=== PATIENT | female | born 1960 | race Caucasian/White ===

== ENCOUNTER 2017-01-25 16:41 | Observation (INO) | payer OTHER ==
[~2017-01-25] VITALS: Ht 170.2 cm; Wt 60.2 kg
[2017-01-25 16:47] VITALS: BP 138/91; PULSE 59; RESP 20; O2SAT 99
[2017-01-25 18:51] LABS: APPEARANCE,URINE CLOUDY (CLEAR,HAZY); COLOR,URINE BLOODY (YELLOW); OCCULT BLOOD,URINE LARGE (NEGATIVE); UROBILINOGEN,URINE NORMAL (NORMAL)
--- NOTE | 2017-01-25 19:01 | ED.REPORT ---
HPI-Abd Pain F 40 and Over Date of Service Jan 25, 2017 ED Provider: Leo Das MD History of Present Illness: Patient sent in by GI Dr. Gil from GI Clinic A 57 year old female with a history of allergies presents to the ED with worsening RUQ abdominal pain onset a "couple of months ago." The pain has since become diffuse and is currently rated 6/10, with exacerbation to 10/10 with eating and movement. The patient also reports nausea and recent weight loss ( 15lbs) over the past two months. She denies vomiting, dysuria, hematochezia, diarrhea, or other symptoms. The patient had an abdominal CT and subsequent US over the past three weeks, both indicating an enlarged uterus. She was seen by her GI physician today who noted abdominal guarding and referred her to the ED. The patient has a long family history of gastric cancers. Nursing Notes Stated Complaint: ABDOMINAL PAIN Chief Complaint: Female Abdominal Pain Nursing Notes Reviewed: Yes ([employer], meds not reconciled) Allergies: Coded Allergies: Nelson (Verified Allergy, Severe, Anaphylaxis, 01/25/17) banana (Verified Allergy, Severe, Anaphylaxis, 01/25/17) latex (Verified Allergy, Mild, 01/25/17) Scheduled Beclomethasone Dipropionate (Qvar) 8.7 Gm Aer.w.adap 3 PUFF INHALATION BID 80 MCG INHALER Cetirizine HCl (Zyrtec) 10 Mg Capsule 10 MG PO HS Ferrous Sulfate (Ferrous Sulfate) 325 Mg Tablet 325 MG PO DAILY Montelukast (Montelukast) 10 Mg Tablet 10 MG PO HS [place]-3/Dha/Epa/Fish Oil (Fish Oil 1,000 mg Softgel) 1 Each Capsule 1 EACH PO BID Potassium Gluconate (Potassium Gluconate) 500 Mg Tablet 500 MG PO DAILY Scheduled PRN Albuterol HFA (Proair HFA) 8.5 Gm Hfa.aer.ad 2 PUFFS INHALATION Q4H PRN PRN For Shortness of Breath Epinephrine (Epipen 2-Delbert) 0.3 Mg/0.3 Ml Auto.injct 0.3 MG IJ DAILY PRN PRN For Anaphyllaxis diphenhydrAMINE HCl (Benadryl) 25 Mg Capsule 25-50 MG PO Q4H PRN PRN ALLERGIC REACTION General Time Seen by MD: 18:55 Chief Complaint Abdominal pain Hx Obtained From: Patient Arrived By: Walk-in Sudden in Onset?: No Onset Occurred: More than a week ago... ("a couple of months") Symptom Duration: Since onset Progression since Onset: Gradually worsening Location: : Diffuse: RUQ Quality: Painful Severity: Current: Moderate Severity: Maximum: Moderate Associated with: Reports: Nausea, Denies: Diarrhea, Fever, Vomiting Exacerbated by: Eating, Movement Pertinent Negative: Relieved by nothing Recent Healthcare: Recent doctor visit Past Medical History Past Medical History None reported Past Surgical History Allergies Family History "Stomach cancer" Smoking History Never Smoker Social History Other Social History: Good social support Ambulatory Status Independent Review of Systems Constitutional: Reports: Recent wt loss (15lbs over two months), Denies: Fever Respiratory: Denies: Non-productive cough, Shortness of breath GI: Reports: Abdominal pain (RUQ to diffuse), Nausea, Denies: Diarrhea, Hematochezia, Vomiting Female: Denies: Dysuria Complete sys rev & neg: except as marked. Physical Exam Vital Signs Vital Signs (First) Date Time Temp Pulse Resp B/P Pulse Ox O2 Delivery O2 Flow Rate FiO2 01/25/17 16:47 36.3 59 20 138/91 99 Room Air Initial VS: Reviewed, Vital signs normal Head / Eyes: Atraumatic, Normocephalic ENT: Conjunctiva normal, No scleral icterus Skin: Warm, Dry, No cyanosis Neurologic: Alert, Oriented, Nonfocal Psychiatric: Mood/affect normal, Behavior normal, Normal thought content General/Constitutional: Awake, Alert Thin Respiratory / Chest: Breath sounds NL, Breath sounds = bilat, No respiratory distress Cardiovascular: Heart rate NL, Regular rhythm, Heart sounds NL Abdomen: Soft, Non-tender, No guarding, No rebound No peritonitis Interpretation & Diagnostics CT ABDOMEN/PELVIS W/ CONTRAST from [facility] on 01/06/17: IMPRESSION: Overall, no acute abnormality. Mild hepatic steatosis. Normal appearance of gallbladder. Simple left renal cyst. Appendix not definitely seen however probably normal in the right lower quadrant. Please correlate clinically and with laboratory data to exclude occult appendicitis. Diffuse heterogeneous and enlarged uterus, although clinical significance is unknown. Recommend clinical correlation and if needed pelvic ultrasound could be performed for further assessment. Dictated by: Dean Shepherd M.D. on 01/06/17 at 11:52 AM US PELVIS W/ TRANSVAGINAL from [facility] on 01/18/17: IMPRESSION: Diffusely enlarged uterus, although no focal lesion identified. Recommend clinical correlation. Nonspecific left ovarian cyst. At clinical discretion, follow-up with ultrasound of 6-12 weeks could be performed to document resolution. Dictated by: Dean Meyers M.D. on 01/18/17 at 10:18 AM Lab Results Interpretation Result Diagram: 01/25/17 19301/25/17 193 Test 01/25/17 18:21 01/25/17 19:35 Urine Color Bloody (YELLOW) Urine Appearance Cloudy (CLEAR,HAZY) Urine pH 7.0 (5.0-8.0) Urine Specific [place] 1.015 (1.003-1.035) Urine Protein 30mg/dL (NEG,TRACE) Urine Glucose (UA) Negativemg/dL (NEGATIVE) Urine Ketones Negativemg/dL (NEGATIVE) Urine Occult Blood Large (NEGATIVE) Urine Nitrite Negative (NEGATIVE) Urine Bilirubin Negative (NEGATIVE) Urine Urobilinogen Normalmg/dL (NORMAL) Urine Leukocyte Esterase Trace (NEGATIVE) Urine RBC Packed/hpf (0-2) Urine WBC 0-5/hpf (0-5) Urine Epithelial Cells Few/hpf (NONE-MOD) Urine Crystals None seen (NONE SEEN) Urine Bacteria Few/hpf (NONE-FEW) Urine Hyaline Casts None/lpf (NONE) Urine Granular Casts None seen (NONE SEEN) Urine Waxy Casts None seen (NONE SEEN) Urine Red Blood Cell Casts None seen (NONE SEEN) Urine White Blood Cell Casts None seen (NONE SEEN) Urine Mucus None seen (None Seen) Urine Trichomonas None seen (NONE SEEN) Urine Yeast None (NONE SEEN) Urinalysis Comment None Urine Culture Reflexed Indicated White Blood Count 5.7th/mm3 (3.8-10.1) Red Blood Count 4.41mil/mm3 (3.90-5.20) Hemoglobin 13.9g/dL (12.0-15.6) Hematocrit 41.7% (35.0-46.0) Mean Corpuscular Volume 94.6fL (81-100) Mean Corpuscular Hemoglobin 31.5pg (27.0-35.0) Mean Corpuscular Hemoglobin Concent 33.3% (32.0-37.0) Red Cell Distribution Width 13.4% (12.3-15.4) Platelet Count 207bil/L (150-400) Neutrophils (%) (Auto) 76.1% (40-74) Lymphocytes (%) (Auto) 17.5% (14-46) Monocytes (%) (Auto) 5.6% (4-12) Eosinophils (%) (Auto) 0.3% (0-5) Basophils (%) (Auto) 0.3% (0-3) Sodium Level 138mEq/L (134-144) Potassium Level 3.8mEq/L (3.5-5.2) Chloride Level 103mEq/L (97-108) Carbon Dioxide Level 22mmol/L (18-29) Blood Urea Nitrogen 14mg/dL (6-24) Creatinine 0.58mg/dL (0.57-1.00) Estimat Glomerular Filtration Rate 154mL/min (>59) Glucose Level 100mg/dL (60-99) Calcium Level 8.7mg/dL (8.5-10.1) Magnesium Level 2.1mg/dL (1.6-2.6) Total Bilirubin 0.6mg/dL (0.0-1.2) Aspartate Amino Transf (AST/SGOT) 12U/L (0-50) Alanine Aminotransferase (ALT/SGPT) 12U/L (0-32) Alkaline Phosphatase 59U/L (25-150) Total Protein 6.5g/dL (6.4-8.4) Albumin 4.1g/dL (3.4-5.0) Lipase 47U/L (13-60) Hold Anaya Top Tube Received (Received) Lab Results Interpretation: CBC normal CMP normal Lipase normal UA positive hematuria CT Abd / Pelvis Interpretation CONCLUSION: 2.5cm cyst in the left ovary. Nonemergent ultrasound is recommended. Uterus is mildly enlarged. This could also be further evaluated with ultrasound. Transmitted to ED by Terry Castillo M.D. at 01/25/2017 - 10:15:11 PM PST Study type: Abdominal CT IV contrast Interpretation / Wet Read by: Interpret - Radiologist Re-Eval/Medical Decision Med Decision/Clinical Course This is a 57-year-old female sent in by the GI clinic for abdominal pain with concern for guarding on initial exam and the GI office. This patient's been developing symptoms that have persistent discomfort over a number of weeks, has had an outpatient CT scan, an ultrasound. The patient reports that the ultrasound suggested her uterus was extremely enlarged, although the formal report is reviewed and obtained from [employer] does not describe this. The patient has had a 15 pound weight loss, has an extensive family history of gastric cancer, and reports that she has pain in her symptoms are worsened with eating-so she has really not been eating, symptoms and continue to get worse. The location is mainly in the epigastric periumbilical region, although occasionally down to the lower abdomen and she reports intermittent malaise " all over" is been no fever, no vomiting, no GI blood loss, no dysuria and no additional complaint. On my exam she was then responded she appears fatigued, cachectic, in thin-but she does not have localized tenderness or guarding at time of my exam. Work was obtained and was normal. Discussed the case with GI and indicated the concern was this guarding-so I CT scan with IV and oral contrast was obtained-those negative except for an incidental ovarian cyst with outpatient ultrasound for that recommended in follow-up. UA noted some mild hematuria as well, significance uncertain. However neither an ovarian cyst, nor hematuria explain the weight loss, the inability to eat or drink or provoke symptoms-and again the patient's highly concerned with her extensive family history of some sort of gastric or intestinal cancer. So the plan at this point is admission to the hospital, GI consultation and the case was discussed with both GI and the admitting hospitalist Source of Hx: Old records Re-Evaluation/Progress : Time of Eval: 22:49 )( Re-Eval Abdomen: Soft, Non-tender Re-Evaluation/Progress Note: Patient's pain has worsened. Discussed with patient CT and lab results, diagnosis, and plan for admit. Patient agrees with plan for care and all questions were addressed. Consultation #1: Referral / Consult Name: Linda Plaza MD Call Returned at: 20:30 [employer]: Will see patient (Tomorrow), Agrees with eval, Agrees with plan Consultation #2: Referral / Consult Name: Erika Sun DO Consulted With: Hospitalist Call Returned at: 22:37 [employer]: Agrees with eval, Agrees with plan, Accepts admit Differential Diagnosis: Positive: Acute abdominal pain, Negative: Abdominal aortic aneurysm, Appendicitis, Bladder outlet obstruct, C. diff colitis, Ectopic preg ruptured, Ectopic , Esophageal rupture, Gun shot wound abdomen, Myocardial infarction, Pancreatitis, Peritonitis, Stab wound abdomen Counseled Regarding: Diagnosis, Lab results, Need for admission Discharge & Departure Primary Impression: Abdominal pain Abdominal location: generalized Qualified Code: R10.84 - Generalized abdominal pain Additional Impressions: Recent weight loss Dehydration Hematuria Left ovarian cyst Disposition: ADMITTED TO HOSPITAL Discharge Condition All VS Reviewed: Yes Condition: Improved Referrals: Mukul Mora MD (PCP) Lance Gil PA-C Scribe Attestation Portions of this note were transcribed by Ariadna Bower. I, Dr. Das, personally performed the history, physical exam, and medical decision-making; I reviewed and confirmed the accuracy of the information in the transcribed note. Signed by: Carina Crum, 01/25/2017, 22:55 copies to: Lance Gil PA-C; Mukul Mora MD, Matthew F MD Jan 25, 2017 19:01 ARIADNA BOWER Jan 25, 2017 19:11
[2017-01-25] MEDS ORDERED: 0.9% Sodium Chloride 1,000 ML IV ONE (19:20)
[2017-01-25] MEDS ORDERED: Ondansetron 2 mg/mL 2 mL Inj IVPUSH ONE (19:20)
[2017-01-25 19:45] LABS: BASOPHILS % (AUTO) 0.3 % (0-3); EOSINOPHILS % (AUTO) 0.3 % (0-5); MONOCYTES % (AUTO) 5.6 % (4-12); Mean Corpuscular Hemoglobin 31.5 pg (27.0-35.0); Mean Corpuscular Volume 94.6 fL (81-100); NEUTROPHILS % (AUTO) 76.1 % (40-74); Platelet Count 207 bil/L (150-400)
[2017-01-25] MEDS ORDERED: CETI10CA PO (19:51)
[2017-01-25] MEDS ORDERED: OMEG-38 PO (19:51)
[2017-01-25] MEDS ORDERED: POTA2TAB16 PO (19:51)
[2017-01-25] MEDS ORDERED: DIPH25CA6 PO (19:51)
[2017-01-25] MEDS ORDERED: FERR-83 PO (19:51)
[2017-01-25] MEDS ORDERED: ALBU8.5H2 INHALATION (19:52)
[2017-01-25] MEDS ORDERED: BECL8.7A6 INHALATION (19:52)
[2017-01-25] MEDS ORDERED: MONT10TA23 PO (19:52)
[2017-01-25] MEDS ORDERED: EPIN0.3P2 IJ (19:53)
[2017-01-25] MEDS: HYDROmorphone 0.5 mg/0.5 mL iSecure Syringe IVPUSH PRN ×2 (20:01→23:29)
[2017-01-25 20:05] LABS: Magnesium 2.1 mg/dL (1.6-2.6)
[2017-01-25] MEDS ORDERED: Iohexol 300 mg/mL 30 mL Inj PO ONE (20:30)
[2017-01-25] MEDS ORDERED: Alum-Mag Hydrox-Simeth 30 mL Suspension PO PRN (22:45)
[2017-01-25] MEDS ORDERED: Polyethylene Glycol (PEG) 17 Gm Powder PO PRN (22:45)
[2017-01-25] MEDS ORDERED: HYDROmorphone 0.5 mg/0.5 mL iSecure Syringe IVPUSH ONE (22:50)
[2017-01-25 22:58] VITALS: BP 121/68; PULSE 66; RESP 16; O2SAT 96
[2017-01-25] MEDS ORDERED: HYDROmorphone 1 mg/mL Inj IVPUSH PRN (23:40)
[2017-01-26] VITALS (12 sets, daily range): BP systolic 88–122; BP diastolic 45–70; PULSE 50–67; RESP 14–18; O2SAT 95–98
[2017-01-26] MEDS: Ondansetron 2 mg/mL 2 mL Inj IVPUSH PRN ×5 (01:06→22:54)
[2017-01-26] MEDS: 0.9% Sodium Chloride 1,000 ML IV SCH ×3 (02:43→16:14)
[2017-01-26] MEDS: HYDROmorphone 1 mg/mL Inj IVPUSH PRN ×4 (02:53→19:02)
[2017-01-26] MEDS ORDERED: diphenhydrAMINE 25 mg Capsule PO PRN (05:25)
--- NOTE | 2017-01-26 05:32 | PCM.HPMED ---
Subjective Date of Service Jan 26, 2017 Primary Provider: Admitting Physician: Erika Sun DO Primary Care Physician: Mukul Mora MD Attending Physician: Erika Sun DO Admit Status: From the Emergency Department Chief Complaint: Abdominal pain History of Present Illness: 57 year old female with LMP January 20 and medical history significant only for asthma and allergies presented to [facility] ED with worsening abdominal pain after being encouraged to do so by Lance ALEMAN from GI Clinic. Who took the following history at her clinic visit. This pleasant 57-year-old patient presents complaining of generalized abdominal pain with guarding. She reports that symptoms started 2 months ago and pain has progressively worsened. She describes pain as a constant aching that becomes stabbing after eating meals--she has been avoiding eating to avoid the discomfort, and reports has lost nearly 15 pounds over the past 2 months. Since there is an association with meals, her PCP started omeprazole--she reports has noted no improvement. She reports that her bowel movement frequency has decreased to every other day--she believes this is due to the fact that she is not eating much--denies straining with bowel movements. She also reports dyspepsia and nausea associated with intensified pain episodes-- denies vomiting, melena, hematochezia, diarrhea, rectal pain, fever, chills, or history of PUD. Most recent blood work one month ago was unremarkable. Abdomen /pelvis CT was performed at [facility], on 01/06/2017-- unremarkable, except for enlarged uterus. Nearly 2 weeks later, a transvaginal ultrasound was performed and revealed, "... diffusely enlarged uterus, although no focal lesions identified ...". She states has never undergone colonoscopy. She denies family history of colon cancer, but does report a family history of gastric cancer (her father and aunt) . Additionally, patient reports an acute worsening in the last day and increased pain since her CT with oral contrast. She now describes the pain as "labor-like " and points to her bilateral lower quadrants. She describes her pain level 6/ 10, with exacerbation to 10/10 with eating and movement. She has been having nausea with only one episode of vomiting just prior to my visit with the patient. She denies dysuria, hematochezia, and diarrhea. She does mention that she has a small mouth and narrow esophagus, she chokes easily. She endorses mild dizziness and shortness of breath with pain episodes. She is currently menstruating with light flow. Review of Systems: A comprehensive review of systems was conducted with the patient and found to be negative except as above in the History of Present Illness. Allergies Coded Allergies: Nelson (Verified Allergy, Severe, Anaphylaxis, 01/25/17) banana (Verified Allergy, Severe, Anaphylaxis, 01/25/17) latex (Verified Allergy, Mild, 01/25/17) [facility] 01/25/2017 03:30 PM 11/26 Patient reports no changes 11/13/2015 Benadryl Allergy 25 mg tablet take 1 tablet by oral route as needed for allergy to bananas and cherries 11/13/2015 EpiPen 2-Delbert 0.3 mg/0.3 mL (1:1,000) injection,auto-injector inject 0.3 milliliter by intramuscular route once as needed for anaphylaxis 11/13/2015 Fish Oil 1,000 mg capsule take 2 capsules every day MONTELUKAST SODIUM take 1 tablet by oral route every day in the evening 11/13/2015 Multiple Vitamins tablet take 1 tablet every day 12/28/2016 omeprazole 20 mg capsule,delayed release take 1 capsule by oral route every day Qvar inhale 2 puff by inhalation route 2 times every day 06/02/2016 urea 40 % topical cream apply by topical route 2 times every day to the affected area(s) 09/10/2016 Ventolin HFA 90 mcg/actuation aerosol inhaler inhale 2 puff by inhalation route every 4 - 6 hours as needed 11/18/2015 Zyrtec 10 mg tablet take 1 tablet by oral route every day PMH Asthma Allergies; severe to banana and cherries and latex Surgical History Single wisdom tooth extraction Family History Gastric cancer in father diagnosed at age 62 at age 65. gastric cancer in paternal aunt Gastric cancer in cousin (not the child of aunt with Gastric cancer) Social History Hx Alcohol Use: No Hx Substance Use: No Hx Tobacco Use: No Smoking Status: Never Smoker Living Arrangement: with Family Exam Vital Signs Vital Sign - Last Date Time Temp Pulse Resp B/P Pulse Ox O2 Delivery O2 Flow Rate FiO2 01/26/17 00:05 37.3 52 18 122/70 96 Room Air Intake and Output 01/25/17 01/25/17 01/26/17 Cumulative From/Thru 15:00 23:00 07:00 01/25/17 16:47 - 01/25/17 23:52 Intake Total 1000 ml 1000 ml Balance 1000 ml 1000 ml Intake IV Total 1000 ml 1000 ml Exam General: Mild distress, well-developed, well-nourished, appropriately interactive HEENT: Normocephalic, atraumatic. External ears without defect. Pupils equal, round, and reactive to light and accommodation. Anicteric sclerae, moist conjunctivae, and no lid lag. Oropharynx free of erythema and cobble stoning with moist mucosa. Neck: Supple with full range of motion. No jugular venous distension. No bruits. No lymphadenopathy or thyromegaly. Cardiovascular: Regular rate and rhythm with no murmurs, rubs, or gallops appreciated Pulmonary: Clear to auscultation bilaterally with no crackles, wheezes, or rhonchi. Normal respiratory effort with no use of accessory muscles. Abdomen: Bowel tones present. Soft, nontender, nondistended. No hepatosplenomegaly or masses appreciated. Extremities: No clubbing, cyanosis, edema, or lymphadenopathy appreciated. Skin: Normal temperature, turgor, and texture; no rash, ulcers, or subcutaneous nodules appreciated. Neurological: Cranial nerves grossly intact. Normal muscle strength, tone, and bulk. No known gait impairment. Psychiatric: Normal mood and affect. Alert and oriented to person, place, and time. Lab and Diagnostics Result Diagram: 01/25/17193401/25/171934 Assessment & Plan 57 year old female with LMP January 20 and medical history significant only for asthma and allergies presented to [facility] ED with worsening abdominal pain 1. Abdominal pain, present on admission, acute - Patient with strong family history of gastric cancer in multiple relatives on her father's side - NS 100 mL per hour due to decreased by mouth intake - When necessary Zofran for nausea - Case discussed with GI in the emergency department, consult ordered, GI will need to be contacted by day team - NPO plus ice chips currently - IV Dilaudid for pain control 2. Allergies, present on admission, chronic - Continue montelukast and cetirizine (or substitute) - No banana, cherries, latex near patient - PRN Benadryl 3. Asthma, present on admission, chronic - Continue Qvar and albuterol Bowel regimen when necessary MiraLAX and senna Heartburn when necessary Maalox Patient is admitted under observation status with expected length of stay less than 2 midnights due to severity of presenting symptoms, risk of adverse event, and complexity of treatment plan. Pain Evaluation: Adequate Pain Control copies to: Mukul Mora MD, Erika R DO Jan 26, 2017 00:50
[2017-01-26] MEDS: Albuterol 2.5 mg/3 mL Inhalation Solution NEB SCH ×5 (07:00→20:30)
[2017-01-26] MEDS: Omega-3 Fatty Acids 1,000 mg Capsule PO SCH ×2 (07:59→20:22)
--- NOTE | 2017-01-26 09:35 | DRSVH ---
PROCEDURE: CT ABDOMEN AND PELVIS WITH CONTRAST ([id number]) INDICATIONS: Abd Pain TECHNIQUE: After the administration of oral and intravenous contrast, 5 mm thick sections acquired from the diap hragms to the symphysis. 5 mm thick coronal and sagittal reformats were performed. For radiation do se reduction, the following was used: automated exposure control, adjustment of mA and/or kV accordi ng to patient size. COMPARISON: [facility], CT, CT ABDOMEN PELVIS W CONTRAST, 01/06/2017, 9:50 AM. FINDINGS: Image quality: Excellent. ABDOMEN: Lung bases: Lung bases are clear. Heart size is normal. Solid organs: Liver and spleen are normal in size and enhancement. Diffuse fatty filtration liver is noted. Gallbladder is within normal limits. Biliary system is non-dilated. Pancreas enhances sis lly. No adrenal nodules. Kidneys are normal in size and enhancement, without hydronephrosis. Small left renal cyst is noted. Peritoneum and bowel: Stomach, small bowel, and colon loops are normal in caliber and wall thickness . No free fluid or air. The appendix is within normal limits. Nodes and vessels: No retroperitoneal or mesenteric adenopathy. Aorta and inferior vena cava are no rmal in caliber. Miscellaneous: No ventral hernias. PELVIS: Genitourinary: Bladder wall thickness is normal. 2.5 cm left ovarian cyst is noted. Uterus is promin ent in size but particularly at the lower uterine segment. Miscellaneous: No inguinal hernias or adenopathy. Bones: No suspicious bony lesions. No vertebral body compression fractures. IMPRESSION: 1. Hepatic steatosis. 2. 2.5 cm left adnexal cyst. 3. Prominent uterus with possible mass in the lower uterine segment/cervix. Recommend pelvic ultrasou nd and gynecologic consultation. Dictated by: Amy Barnett MD, PhD on 01/26/2017 at 9:26 Approved by: Amy Barnett MD, PhD on 01/26/2017 at 9:33
[2017-01-26] MEDS: Fluticasone 100 mCg Inhaler INHALATION SCH ×2 (09:58→20:22)
--- NOTE | 2017-01-26 11:03 | DRSVH ---
PROCEDURE: US PELVIC SONOGRAM + TRANSVAGINAL SONOGRAM INDICATIONS: Vaginal bleeding enlarged uterus, abd pain, non sp TECHNIQUE: Real-time scanning was performed of the pelvic organs, with image documentation. Additional endovagi nal scanning was necessary due to incomplete visualization of the adnexal and endometrial structures by transabdominal scanning. COMPARISON: None. FINDINGS: Transabdominal scanning: Limited scanning through the kidneys shows no hydronephrosis. No pathologi c free abdominal or pelvic fluid. Endovaginal scanning: Uterus: Uterus is normal in size at 10.7 x 6.9 x 5.7 cm. The endometrium measures 5.2 mm in combine d thickness. Ovaries: The right ovary is simple cyst involves the left ovary measuring 3.0 x 2.7 x 1.9 cm. 2 small gallbladder polyps are noted. IMPRESSION: 1. Simple cysts involving the left ovary. 2. Incidental note of 2 gallbladder polyp measuring 1.5 mm. Dictated by: Clifford REEVES Interpreted: Estephania Yung MD on 01/26/2017 at 11:01 Transcribed by: KATHRINE on 01/26/2017 at 11:02 Approved by: Estephania Yung M.D. on 01/28/2017 at 16:22
[2017-01-26] MEDS ORDERED: fentaNYL-PF 50 mCg/mL 2 mL Inj IVPUSH PRN (15:30)
[2017-01-26] MEDS ORDERED: PEG/Electrolytes 4,000 mL Solution PO ONE ×2 (16:05→20:20)
--- NOTE | 2017-01-26 16:40 | ENDO ---
[address] [address] ENDOSCOPY PROCEDURE PATIENT: RUSTAM REYES : 1960 MR#: [id number] ADMIT: 01/25/2017 JOB ID: [id number] PROCEDURE: Esophagogastroduodenoscopy. INDICATION: Chronic abdominal pain. ANESTHESIA: The patient's ASA classification is two. Mallampati score is two. MEDICATIONS: 1. Versed 4 mg. 2. Fentanyl 100 mcg. INSTRUMENT USED: [id number]. PROCEDURE DETAILS: After informed consent was obtained, the patient was brought into the GI suite, where she was placed on oxygen via nasal cannula and monitored with continuous pulse oximeter, telemetry, and blood pressure monitoring. A time-out was performed, then she was placed in the left lateral decubitus position and medications were administered for sedation. A bite block was placed. The standard EGD scope was inserted through the bite block and advanced under direct visualization to the second portion of duodenum without difficulty. FINDINGS: 1. Normal appearing duodenal bulb, first and second portion. 2. Normal-appearing pylorus, antrum, and gastric body. 3. Retroflexed views in the gastric body revealed a normal-appearing cardia and fundus. 4. Multiple random biopsies were obtained in the stomach body to evaluate for H. pylori. 5. Normal-appearing GE junction with a regular Z-line at 38 cm. 6. Normal appearing esophagus. IMPRESSION: Normal esophagogastroduodenoscopy exam to second portion of duodenum. No findings to explain the patient's abdominal pain. RECOMMENDATIONS: I would recommend colonoscopy for further evaluation of abdominal pain. COMPLICATIONS: None. ESTIMATED BLOOD LOSS: Less than 5 mL. MTDD
--- NOTE | 2017-01-26 17:29 | PCM.CHPMED ---
Subjective Date of Service: Jan 26, 2017 Provider requesting consult: Kerrie De La Rosa DO Primary Physician: Admitting Physician: Erika Sun DO Primary Care Physician: Mukul Mora MD Attending Physician: Erika Sun DO Chief Complaint: Chief Complaint: REASON FOR GI CONSULT: Abdominal pain History of Present Illness: Ms. Jessenia Xiong is a pleasant 57 year old woman with no personal history of GI issues that presented to [facility] with increasing abdominal pain that has been present over the recent 2 months. GI was consulted to evaluate for an etiology of her symptoms. She describes the pain as a constant stabbing pain, located within epigastric region, and also of suprapubic area similar to child- associated pains. She has never received EGD or colonoscopy prior to this hospitalization. She has associated nausea, mild dizziness with pain episodes, and unintentional weight loss of apporx 15 lbs since onset of symptoms. Denies fever, chills. GI was consulted to evaluate for etiology of symptoms. PMH Past Medical History Asthma Allergies; severe to banana and cherries and latex Allergies: Coded Allergies: [place] (Verified Allergy, Severe, Anaphylaxis, 01/25/17) banana (Verified Allergy, Severe, Anaphylaxis, 01/25/17) latex (Verified Allergy, Mild, 01/25/17) Family History Family History Gastric cancer in father diagnosed at age 62 at age 65. Gastric cancer in paternal aunt Gastric cancer in cousin (not the child of aunt with gastric cancer) Social History Hx Alcohol Use: NoHx Substance Use: NoHx Tobacco Use: No Smoking Status: Never Smoker Living Arrangement: with Family Exam Vital Signs Vital Sign - Last Date Time Temp Pulse Resp B/P Pulse Ox O2 Delivery O2 Flow Rate FiO2 01/26/17 16:30 67 14 94/61 97 Room Air 01/26/17 14:03 36.8 Intake and Output 01/25/17 01/25/17 01/26/17 Cumulative From/Thru 15:00 23:00 07:00 01/25/17 16:47 - 01/26/17 06:11 Intake Total 1000 ml 433 ml 1433 ml Output Total 720 ml 720 ml Balance 1000 ml -287 ml 713 ml Intake Oral 100 ml 100 ml IV Total 1000 ml 333 ml 1333 ml Output Urine Total 700 ml 700 ml Emesis 20 ml 20 ml General: Alert, Oriented X3, Cooperative, Mild Distress Head: Normal Eyes: EOMI, Scleral Anicteric Nose: Mucous Membr Moist/[place] Mouth: Mucous Membr Moist/[place] Chest & Lungs: Clear to auscultation & percussion Cardiovascular: Regular Rate/Rhythm, No Murmurs/Rubs/Gallops Abdomen: Tender, Non-distended, Soft Neurological: Grossly Neurologically Intact, Normal Speech Lab and Diagnostics Result Diagram: 01/25/17193401/25/171934 Assessment & Plan Assessment GASTROENTEROLOGY CONSULTATION NOTE Ms. Jessenia Xiong is a pleasant 57 year old woman with no personal history of GI issues that presented to [facility] with increasing abdominal pain that has been present over the recent 2 months. GI was consulted to evaluate for an etiology of her symptoms. Assessments - Acute abdominal pain Plan - EGD scheduled 01/26; completed - Colon prep 01/26 - NPO midnight - Colonoscopy scheduled 01/27 - Recommend I[employer] ACCOUNT MANAGER consultation to evaluate for other etiologies, including the abnormality seen on CT 01/26 of possible mass in lower uterine segment/cervix Thank you for this consult. We will happily follow along with you. Total time: 30 minutes Problems: Pain Evaluation: Adequate Pain Control Attending Statement pt seen and examined agree with resident physician H and P acute abdominal pain ct finding of enlarged uterus is the only objective finding to date. plan for colonoscopy tomorrow to rule mucosal disease in the colon Her EGD exam was normal Consider ICT ACCOUNT MANAGER consult for evaluation of enlarged uterus. Jhoana Thomas DO Jan 26, 2017 17:29 Linda Plaza MD Jan 26, 2017 21:48
[2017-01-27] VITALS (7 sets, daily range): BP systolic 110–130; BP diastolic 57–70; PULSE 51–68; RESP 14–16; O2SAT 94–98
[2017-01-27] MEDS: HYDROmorphone 1 mg/mL Inj IVPUSH PRN ×2 (00:06→06:46)
[2017-01-27] MEDS: Albuterol 2.5 mg/3 mL Inhalation Solution NEB SCH ×4 (00:30→12:30)
[2017-01-27] MEDS: MetoCLOpramide 5 mg/mL 2 mL Inj IVPUSH PRN ×2 (02:21→10:23)
[2017-01-27] MEDS: Ondansetron 2 mg/mL 2 mL Inj IVPUSH PRN ×2 (03:30→08:45)
--- NOTE | 2017-01-27 06:16 | PCM.PNMED ---
Subjective Date of Service Jan 26, 2017 Subjective Patient is a G1P!, says has halways had irregular periods and at age 46 her periods became more regular. She is currently having a period, they last 7 days. She does not think her mother had the same pattern. She says abd pain starts in epigastrium and then goes down into her pelvic area, it is alike "having a baby". Pain is worsened with food, so she is not eating, worse with movement also. Well controlled on her current pain regimen. She knows she will have an EGD this AM. Exam Vital Signs Vital Signs Date Time Temp Pulse Resp B/P Pulse Ox O2 Delivery O2 Flow Rate FiO2 01/27/17 02:11 36.7 59 16 110/57 96 Room Air 01/26/17 22:20 36.9 61 16 115/54 95 Room Air 01/26/17 20:40 64 16 96 Room Air 01/26/17 18:18 36.9 57 16 118/68 96 Room Air 01/26/17 16:30 67 14 94/61 97 Room Air 01/26/17 16:25 57 14 88/45 97 Room Air 01/26/17 16:09 62 14 94/47 96 Room Air 01/26/17 15:25 59 112/68 98 Room Air 01/26/17 14:03 36.8 54 16 95/54 97 Room Air 01/26/17 09:54 36.3 50 16 96/59 97 Room Air Vital Sign - Last Date Time Temp Pulse Resp B/P Pulse Ox O2 Delivery O2 Flow Rate FiO2 01/27/17 02:11 36.7 59 16 110/57 96 Room Air Intake and Output 01/26/17 01/26/17 01/27/17 Cumulative From/Thru 15:00 23:00 07:00 01/25/17 16:47 - 01/26/17 21:20 Intake Total 777 ml 2210 ml Output Total 720 ml Balance 777 ml 1490 ml Intake Oral 120 ml 220 ml IV Total 657 ml 1990 ml Output Urine Total 700 ml Emesis 20 ml # Voids 2 1 3 IVs and Medications Medications Reviewed: Medications were reviewed in detail Lab and Diagnostics Laboratory Tests 72 Hours Test 01/25/17 18:21 01/25/17 19:35 Urine Color Bloody (YELLOW) Urine Appearance Cloudy (CLEAR,HAZY) Urine pH 7.0 (5.0-8.0) Urine Specific [place] 1.015 (1.003-1.035) Urine Protein 30mg/dL (NEG,TRACE) Urine Glucose (UA) Negativemg/dL (NEGATIVE) Urine Ketones Negativemg/dL (NEGATIVE) Urine Occult Blood Large (NEGATIVE) Urine Nitrite Negative (NEGATIVE) Urine Bilirubin Negative (NEGATIVE) Urine Urobilinogen Normalmg/dL (NORMAL) Urine Leukocyte Esterase Trace (NEGATIVE) Urine RBC Packed/hpf (0-2) Urine WBC 0-5/hpf (0-5) Urine Epithelial Cells Few/hpf (NONE-MOD) Urine Crystals None seen (NONE SEEN) Urine Bacteria Few/hpf (NONE-FEW) Urine Hyaline Casts None/lpf (NONE) Urine Granular Casts None seen (NONE SEEN) Urine Waxy Casts None seen (NONE SEEN) Urine Red Blood Cell Casts None seen (NONE SEEN) Urine White Blood Cell Casts None seen (NONE SEEN) Urine Mucus None seen (None Seen) Urine Trichomonas None seen (NONE SEEN) Urine Yeast None (NONE SEEN) Urinalysis Comment None Urine Culture Reflexed Indicated White Blood Count 5.7th/mm3 (3.8-10.1) Red Blood Count 4.41mil/mm3 (3.90-5.20) Hemoglobin 13.9g/dL (12.0-15.6) Hematocrit 41.7% (35.0-46.0) Mean Corpuscular Volume 94.6fL (81-100) Mean Corpuscular Hemoglobin 31.5pg (27.0-35.0) Mean Corpuscular Hemoglobin Concent 33.3% (32.0-37.0) Red Cell Distribution Width 13.4% (12.3-15.4) Platelet Count 207bil/L (150-400) Neutrophils (%) (Auto) 76.1% (40-74) Lymphocytes (%) (Auto) 17.5% (14-46) Monocytes (%) (Auto) 5.6% (4-12) Eosinophils (%) (Auto) 0.3% (0-5) Basophils (%) (Auto) 0.3% (0-3) Sodium Level 138mEq/L (134-144) Potassium Level 3.8mEq/L (3.5-5.2) Chloride Level 103mEq/L (97-108) Carbon Dioxide Level 22mmol/L (18-29) Blood Urea Nitrogen 14mg/dL (6-24) Creatinine 0.58mg/dL (0.57-1.00) Estimat Glomerular Filtration Rate 154mL/min (>59) Glucose Level 100mg/dL (60-99) Calcium Level 8.7mg/dL (8.5-10.1) Magnesium Level 2.1mg/dL (1.6-2.6) Total Bilirubin 0.6mg/dL (0.0-1.2) Aspartate Amino Transf (AST/SGOT) 12U/L (0-50) Alanine Aminotransferase (ALT/SGPT) 12U/L (0-32) Alkaline Phosphatase 59U/L (25-150) Total Protein 6.5g/dL (6.4-8.4) Albumin 4.1g/dL (3.4-5.0) Lipase 47U/L (13-60) Hold Anaya Top Tube Received (Received) Result Diagram: 01/25/17193401/25/171934 Microbiology Laboratory Tests Test 01/25/17 18:21 Urine Color Bloody Urine Appearance Cloudy Urine pH 7.0 Urine Specific [place] 1.015 Urine Protein 30mg/dL Urine Glucose (UA) Negativemg/dL Urine Ketones Negativemg/dL Urine Occult Blood Large Urine Nitrite Negative Urine Bilirubin Negative Urine Urobilinogen Normalmg/dL Urine Leukocyte Esterase Trace Urine RBC Packed/hpf Urine WBC 0-5/hpf Urine Epithelial Cells Few/hpf Urine Crystals None seen Urine Bacteria Few/hpf Urine Hyaline Casts None/lpf Urine Granular Casts None seen Urine Waxy Casts None seen Urine Red Blood Cell Casts None seen Urine White Blood Cell Casts None seen Urine Mucus None seen Urine Trichomonas None seen Urine Yeast None Urinalysis Comment None Urine Culture Reflexed Indicated X-Rays, CTs and MRIs [facility] [place] [address] Patient Name: RUSTAM REYES MR#: [id number] Location: [facility] [place] Ordering Phys: Leo Das MD Date of Service: 01/25/172028 PROCEDURE: CT ABDOMEN AND PELVIS WITH CONTRAST ([id number]) INDICATIONS: Abd Pain TECHNIQUE: After the administration of oral and intravenous contrast, 5 mm thick sections acquired from the diaphragms to the symphysis. 5 mm thick coronal and sagittal reformats were performed. For radiation dose reduction, the following was used : automated exposure control, adjustment of mA and/or kV according to patient size. COMPARISON: [facility], CT, CT ABDOMEN PELVIS W CONTRAST, 2016, 9:50 AM. FINDINGS: Image quality: Excellent. ABDOMEN: Lung bases: Lung bases are clear. Heart size is normal. Solid organs: Liver and spleen are normal in size and enhancement. Diffuse fatty filtration liver is noted. Gallbladder is within normal limits. Biliary system is non-dilated. Pancreas enhances normally. No adrenal nodules. Kidneys are normal in size and enhancement, without hydronephrosis. Small left renal cyst is noted. Peritoneum and bowel: Stomach, small bowel, and colon loops are normal in caliber and wall thickness. No free fluid or air. The appendix is within normal limits. Nodes and vessels: No retroperitoneal or mesenteric adenopathy. Aorta and inferior vena cava are normal in caliber. Miscellaneous: No ventral hernias. PELVIS: Genitourinary: Bladder wall thickness is normal. 2.5 cm left ovarian cyst is noted. Uterus is prominent in size but particularly at the lower uterine segment. Miscellaneous: No inguinal hernias or adenopathy. Bones: No suspicious bony lesions. No vertebral body compression fractures. IMPRESSION: 1. Hepatic steatosis. 2. 2.5 cm left adnexal cyst. 3. Prominent uterus with possible mass in the lower uterine segment/cervix. Recommend pelvic ultrasound and gynecologic consultation. Dictated by: Amy Barnett MD, PhD on 01/26/2017 at 9:26 Approved by: Amy Barnett MD, PhD on 01/26/2017 at 9:33 Assessment & Plan 57 year old female with LMP January 20 and medical history significant only for asthma and allergies presented to [facility] ED with worsening abdominal pain 1. Abdominal pain, present on admission, acute - Patient with strong family history of gastric cancer in multiple relatives on her father's side - NS 100 mL per hour due to decreased by mouth intake - When necessary Zofran for nausea - Case discussed with GI in the emergency department, consult ordered, GI is contacted by day team: they will do EGD - NPO plus ice chips currently - IV Dilaudid for pain control - Also consulted [employer] as she needs to be ruled out for malignancy, adenomyoma. Will keep trying to contact them. Pelvic U/S is ordered 2. Allergies, present on admission, chronic - Continue montelukast and cetirizine (or substitute) - No banana, cherries, latex near patient - PRN Benadryl 3. Asthma, present on admission, chronic - Continue Qvar and albuterol Bowel regimen when necessary MiraLAX and senna Heartburn when necessary Maalox Patient is admitted under observation status with expected length of stay less than 2 midnights due to severity of presenting symptoms, risk of adverse event, and complexity of treatment plan. VTE Prophylaxis: SCDs VTE Mechanical Devices: Intermittant Pneumatic CD Resuscitation Status: CPR: Attempt Resuscitation Nella Whiteside DO Jan 27, 2017 06:16
[2017-01-27 08:21] LABS: BASOPHILS % (AUTO) 0.2 % (0-3); EOSINOPHILS % (AUTO) 0 % (0-5); MONOCYTES % (AUTO) 9.2 % (4-12); Mean Corpuscular Hemoglobin 31.7 pg (27.0-35.0); Mean Corpuscular Volume 96.5 fL (81-100); Platelet Count 165 bil/L (150-400)
[2017-01-27] MEDS: Fluticasone 100 mCg Inhaler INHALATION SCH ×2 (08:45→21:29)
[2017-01-27] MEDS: Omega-3 Fatty Acids 1,000 mg Capsule PO SCH ×2 (08:45→20:30)
[2017-01-27] MEDS: 0.9% Sodium Chloride 1,000 ML IV SCH ×2 (11:30→21:33)
--- NOTE | 2017-01-27 12:39 | PCM.PNMED ---
Subjective Date of Service Jan 27, 2017 Subjective GASTROENTEROLOGY PROGRESS NOTE Overnight: Reports of continued abd pain, emesis Today: Attempting to complete colon prep, great difficulty secondary to nausea and vomiting. Reports appropriate loose stool, but stools remain brown. Admits to intermittent chills. Denies fever. State abd pain remains diffuse, but notable of bilateral lower quadrants and epigastric. Exam Vital Signs Vital Sign - Last Date Time Temp Pulse Resp B/P Pulse Ox O2 Delivery O2 Flow Rate FiO2 01/27/17 08:36 36.9 51 16 123/70 94 Room Air Intake and Output 01/26/17 01/26/17 01/27/17 Cumulative From/Thru 15:00 23:00 07:00 01/25/17 16:47 - 01/26/17 21:20 Intake Total 777 ml 2210 ml Output Total 720 ml Balance 777 ml 1490 ml Intake Oral 120 ml 220 ml IV Total 657 ml 1990 ml Output Urine Total 700 ml Emesis 20 ml # Voids 2 1 3 Exam General: Alert, Oriented X3, Cooperative, No acute distress Head: Normal Eyes: EOMI, Scleral Anicteric Nose: Mucous Membr Moist/[place] Mouth: Mucous Membr Moist/[place] Chest & Lungs: Clear to auscultation & percussion Cardiovascular: Regular Rate/Rhythm, No Murmurs/Rubs/Gallops Abdomen: Tender diffusely with palpation, Non-distended, Soft Neurological: Grossly Neurologically Intact, Normal Speech Lab and Diagnostics Result Diagram: 01/27/17 0800 01/27/17 0800 Microbiology Laboratory Tests Test 01/25/17 18:21 Urine Color Bloody Urine Appearance Cloudy Urine pH 7.0 Urine Specific [place] 1.015 Urine Protein 30mg/dL Urine Glucose (UA) Negativemg/dL Urine Ketones Negativemg/dL Urine Occult Blood Large Urine Nitrite Negative Urine Bilirubin Negative Urine Urobilinogen Normalmg/dL Urine Leukocyte Esterase Trace Urine RBC Packed/hpf Urine WBC 0-5/hpf Urine Epithelial Cells Few/hpf Urine Crystals None seen Urine Bacteria Few/hpf Urine Hyaline Casts None/lpf Urine Granular Casts None seen Urine Waxy Casts None seen Urine Red Blood Cell Casts None seen Urine White Blood Cell Casts None seen Urine Mucus None seen Urine Trichomonas None seen Urine Yeast None Urinalysis Comment None Urine Culture Reflexed Indicated X-Rays, CTs and MRIs [facility] Diagnostic [place] [address] Patient Name: JESSENIA XIONG MR#: [id number] Location: [facility] [place] Ordering Phys: Leo Das MD Date of Service: 01/25/172028 PROCEDURE: CT ABDOMEN AND PELVIS WITH CONTRAST ([id number]) INDICATIONS: Abd Pain TECHNIQUE: After the administration of oral and intravenous contrast, 5 mm thick sections acquired from the diaphragms to the symphysis. 5 mm thick coronal and sagittal reformats were performed. For radiation dose reduction, the following was used : automated exposure control, adjustment of mA and/or kV according to patient size. COMPARISON: [facility], CT, CT ABDOMEN PELVIS W CONTRAST, 2016, 9:50 AM. FINDINGS: Image quality: Excellent. ABDOMEN: Lung bases: Lung bases are clear. Heart size is normal. Solid organs: Liver and spleen are normal in size and enhancement. Diffuse fatty filtration liver is noted. Gallbladder is within normal limits. Biliary system is non-dilated. Pancreas enhances normally. No adrenal nodules. Kidneys are normal in size and enhancement, without hydronephrosis. Small left renal cyst is noted. Peritoneum and bowel: Stomach, small bowel, and colon loops are normal in caliber and wall thickness. No free fluid or air. The appendix is within normal limits. Nodes and vessels: No retroperitoneal or mesenteric adenopathy. Aorta and inferior vena cava are normal in caliber. Miscellaneous: No ventral hernias. PELVIS: Genitourinary: Bladder wall thickness is normal. 2.5 cm left ovarian cyst is noted. Uterus is prominent in size but particularly at the lower uterine segment. Miscellaneous: No inguinal hernias or adenopathy. Bones: No suspicious bony lesions. No vertebral body compression fractures. IMPRESSION: 1. Hepatic steatosis. 2. 2.5 cm left adnexal cyst. 3. Prominent uterus with possible mass in the lower uterine segment/cervix. Recommend pelvic ultrasound and gynecologic consultation. Dictated by: Amy Barnett MD, PhD on 01/26/2017 at 9:26 Approved by: mAy Barnett MD, PhD on 01/26/2017 at 9:33 Assessment & Plan GASTROENTEROLOGY CONSULTATION NOTE Ms. Jessenia Xiong is a pleasant 57 year old woman with no personal history of GI issues that presented to [facility] with increasing abdominal pain that has been present over the recent 2 months. GI was consulted to evaluate for an etiology of her symptoms. Assessments - Acute abdominal pain Plan - EGD scheduled 01/26; completed. No evidence of disease or etiology of symptoms. Bx obtained for H. pylori - Colon prep to be DC'd; provide tap water enema x2 prior to colonoscopy scheduled pm 01/27 - Colonoscopy to evaluate for etiology of abd pain No source from GI perspective yet identified. Await and appreciate time and recs of gynecological services. Thank you for this consult. We will happily follow along with you. Total time: 30 minutes VTE Prophylaxis: SCDs VTE Mechanical Devices: Intermittant Pneumatic CD Resuscitation Status: CPR: Attempt Resuscitation Attending Statement Patient seen and examined agree with resident physician note plan for colonoscopy tomorrow as still with solid stool Jhoana Thomas DO Jan 27, 2017 12:39 Linda Plaza MD Jan 28, 2017 23:06
--- NOTE | 2017-01-27 13:12 | CONS ---
[address] [address] CONSULTATION REPORT PATIENT: RUSTAM REYES : 1960 MR#: [id number] ADMIT: 01/25/2017 JOB ID: [id number] DATE OF SERVICE: 01/27/2017 GYNECOLOGY CONSULTATION: The patient is a 57-year-old 1, para 1, that had last menstrual period in September of 2016, had another episode of vaginal bleeding on January 25, 2017 that lasted for 2-3 days. She has been brought to the hospital on January 25, 2017 because of complaints of worsening abdominal pain, lasting for a couple of months. She describes the pain as located in the right upper quadrant and epigastric area, pressure-like that irrigates the mid of the abdomen and to the lower abdomen. The patient describes pain intensity as 6/10 with exacerbation 10/10. She reports weight loss 15 pounds over the last two months. She stated the pain is getting worse with food and movements. She cannot specifically indicate what type of food is making pain worse. The pain is getting better with pain medications and heating pads. She had her menarche at the age of 17 and she is still having her menstrual periods. The patient stated that in the last 10 years up until September of 2016 her menstrual periods were regular and monthly. They were lasting for six days, they were not heavy. The patient denies fever, denies vomiting. No hematochezia and no diarrhea. She denies dysuria, urinary urgency or frequency. She had urinalysis positive for gross hematuria on January 25, 2017. However, she stated that on the same day that she started her menstrual period and the specimen might have been contaminated. She had normal Pap smears throughout her [employer] care. She is sexually active. She denies dyspareunia. She admits having occasional vaginal dryness, denies hot flashes. Her mammograms were always normal. OBSTETRICAL HISTORY: One spontaneous vaginal delivery. Menarche at the age of 17, currently perimenopausal. FAMILY HISTORY: Significant for stomach cancer on the father's side of the family in several family members. Denies a history of uterine, ovarian, breast or colon cancer. SOCIAL HISTORY: The patient denies smoking, alcohol, or illicit recreational drug use. MEDICAL HISTORY: Mild asthma. MEDICATIONS: Dexamethasone, Montelukast, Cetirizine, ferrous sulfate, [place]-3 fish oil. REVIEW OF SYSTEMS: Constitutional: She reports recent weight loss 15 pounds over two months. Denies fever, chills. Cardiovascular system: Patient denies palpitations. No chest pain, no shortness of breath. Respiratory: No shortness of breath. No coughing. GI: She reports abdominal pain, epigastric right upper quadrant spreading to the abdomen, pressure-like stabbing, admits having nausea. Denies diarrhea, vomiting. TIRE LAYER system: Denies having menometrorrhagia, abnormal uterine bleeding. The patient is still perimenopausal. She denies pelvic pain. Genitourinary system: She denies dysuria, urinary urgency or frequency or change in the color of the urine. PHYSICAL EXAMINATION: Vital signs: Temperature 36.9, pulse 51, respiratory rate 16, blood pressure 123/70. HEENT: PERRLA. Conjunctivae normal. Skin: Warm, dry. No cyanosis. Lungs clear bilaterally. No adventitious sounds. Cardiovascular system: Regular rate and rhythm. The abdomen is soft, tender in the upper abdomen and down to the periumbilical area. There is slight guarding. There is no rebound. TIRE LAYER examination: No abnormal vaginal discharge, normal sized uterus. Nonpalpable adnexa. IMAGING: Pelvic ultrasound was done on January 25, 2017. It showed the uterus measuring 10.7 x 6.9 x 5.7 cm with endometrial thickness of 5.2 mm. The ovaries were normal in size, there is small right ovarian cyst, simple measuring 3 x 2.7 x 1.9 cm. ASSESSMENT AND PLAN: This is a 57-year-old 1, para 1, with abdominal pain that is diffuse, originating from upper abdomen right upper quadrant spreading down to the abdomen. The patient is still perimenopausal, she had late menarche and her menstrual periods where monthly until September of 2016, the last one was on the day of her ultrasound on January 25, 2017. The findings on ultrasound do not suggest any significant pathological process in the uterus or adnexa. The current size of the uterus and endometrial thickness are normal for her age and perimenopausal status. The ovarian cyst is simple and is very unlikely to cause her current symptoms. My recommendation is to repeat interval ultrasound in 2-3 months. The patient denies abnormal uterine bleeding or abnormal vaginal discharge. She is having vaginal dryness consistent with perimenopausal state. The pain is mostly located in epigastric and right upper quadrant area. Followup with engine testing supervisor is recommended based on the family history. EVAN
[2017-01-27] MEDS ORDERED: PEG/Electrolytes 4,000 mL Solution PO SCH (15:15)
--- NOTE | 2017-01-27 16:10 | PCM.PNMED ---
Subjective Date of Service Jan 27, 2017 Subjective Patient is resting on bed. She says she still has pain but it is manageable/. She was seen by the OBGYN who essentially did not see any need for further work up based on her pelvic US. Her EGD was negative, she is prepping for the colonoscopy. No other concerns today. Exam Vital Signs Vital Sign - Last Date Time Temp Pulse Resp B/P Pulse Ox O2 Delivery O2 Flow Rate FiO2 01/27/17 14:30 68 16 98 Room Air 01/27/17 12:51 37.3 130/70 Intake and Output 01/26/17 01/26/17 01/27/17 Cumulative From/Thru 15:00 23:00 07:00 01/25/17 16:47 - 01/26/17 21:20 Intake Total 777 ml 2210 ml Output Total 720 ml Balance 777 ml 1490 ml Intake Oral 120 ml 220 ml IV Total 657 ml 1990 ml Output Urine Total 700 ml Emesis 20 ml # Voids 2 1 3 IVs and Medications IV Fluids NSS 80 cc/hr Medications Reviewed: Medications were reviewed in detail Lab and Diagnostics Result Diagram: 01/27/17 0800 01/27/17 0800 Microbiology Laboratory Tests Test 01/25/17 18:21 Urine Color Bloody Urine Appearance Cloudy Urine pH 7.0 Urine Specific [place] 1.015 Urine Protein 30mg/dL Urine Glucose (UA) Negativemg/dL Urine Ketones Negativemg/dL Urine Occult Blood Large Urine Nitrite Negative Urine Bilirubin Negative Urine Urobilinogen Normalmg/dL Urine Leukocyte Esterase Trace Urine RBC Packed/hpf Urine WBC 0-5/hpf Urine Epithelial Cells Few/hpf Urine Crystals None seen Urine Bacteria Few/hpf Urine Hyaline Casts None/lpf Urine Granular Casts None seen Urine Waxy Casts None seen Urine Red Blood Cell Casts None seen Urine White Blood Cell Casts None seen Urine Mucus None seen Urine Trichomonas None seen Urine Yeast None Urinalysis Comment None Urine Culture Reflexed Indicated X-Rays, CTs and MRIs [facility] Diagnostic [place] [address] Patient Name: JESSENIA XIONG MR#: [id number] Location: [facility] Ordering Phys: Leo Das MD Date of Service: 01/25/172028 PROCEDURE: CT ABDOMEN AND PELVIS WITH CONTRAST ([id number]) INDICATIONS: Abd Pain TECHNIQUE: After the administration of oral and intravenous contrast, 5 mm thick sections acquired from the diaphragms to the symphysis. 5 mm thick coronal and sagittal reformats were performed. For radiation dose reduction, the following was used : automated exposure control, adjustment of mA and/or kV according to patient size. COMPARISON: [facility], CT, CT ABDOMEN PELVIS W CONTRAST, 2016, 9:50 AM. FINDINGS: Image quality: Excellent. ABDOMEN: Lung bases: Lung bases are clear. Heart size is normal. Solid organs: Liver and spleen are normal in size and enhancement. Diffuse fatty filtration liver is noted. Gallbladder is within normal limits. Biliary system is non-dilated. Pancreas enhances normally. No adrenal nodules. Kidneys are normal in size and enhancement, without hydronephrosis. Small left renal cyst is noted. Peritoneum and bowel: Stomach, small bowel, and colon loops are normal in caliber and wall thickness. No free fluid or air. The appendix is within normal limits. Nodes and vessels: No retroperitoneal or mesenteric adenopathy. Aorta and inferior vena cava are normal in caliber. Miscellaneous: No ventral hernias. PELVIS: Genitourinary: Bladder wall thickness is normal. 2.5 cm left ovarian cyst is noted. Uterus is prominent in size but particularly at the lower uterine segment. Miscellaneous: No inguinal hernias or adenopathy. Bones: No suspicious bony lesions. No vertebral body compression fractures. IMPRESSION: 1. Hepatic steatosis. 2. 2.5 cm left adnexal cyst. 3. Prominent uterus with possible mass in the lower uterine segment/cervix. Recommend pelvic ultrasound and gynecologic consultation. Dictated by: Amy Barnett MD, PhD on 01/26/2017 at 9:26 Approved by: Amy Barnett MD, PhD on 01/26/2017 at 9:33 Assessment & Plan GASTROENTEROLOGY CONSULTATION NOTE Ms. Jessenia Xiong is a pleasant 57 year old woman with no personal history of GI issues that presented to [facility] with increasing abdominal pain that has been present over the recent 2 months. GI was consulted to evaluate for an etiology of her symptoms. Assessments 1. Acute abdominal pain . Abdominal pain, present on admission, acute - Patient with strong family history of gastric cancer in multiple relatives on her father's side - NS 80 mL per hour due to decreased by mouth intake - When necessary Zofran for nausea - Case discussed with GI in the emergency department, consult ordered, GI is contacted by day team: they will do EGD - IV Dilaudid for pain control - Also consulted [facility] as she needs to be ruled out for malignancy, adenomyoma. Will keep trying to contact them. Pelvic U/S is ordered: [facility] signed off as above. - Bowel regimen when necessary - EGD scheduled 01/26; completed. No evidence of disease or etiology of symptoms. Bx obtained for H. pylori. - Colon prep was DC'd due to inadequate prep; provide tap water enema x 2 prior to colonoscopy scheduled pm 01/27 - Colonoscopy to evaluate for etiology of abd pain. - [facility] saw the patient and signed off. U/S of pelvis unremarkable 2. Allergies, present on admission, chronic - Continue montelukast and cetirizine (or substitute) - No banana, cherries, latex near patient - PRN Benadryl 3. Asthma, present on admission, chronic - Continue Qvar and albuterol Disposition: Tomorrow after scope is done. Pain Evaluation: Adequate Pain Control VTE Prophylaxis: SCDs VTE Mechanical Devices: Intermittant Pneumatic CD Resuscitation Status: CPR: Attempt Resuscitation Nella Whiteside DO Jan 27, 2017 16:10 Nella Whiteside DO Jan 27, 2017 16:10
[2017-01-27] MEDS ORDERED: Albuterol 2.5 mg/3 mL Inhalation Solution NEB PRN (20:29)
[2017-01-28] VITALS (7 sets, daily range): BP systolic 100–125; BP diastolic 54–89; PULSE 56–85; RESP 12–16; O2SAT 93–98
[2017-01-28] MEDS: 0.9% Sodium Chloride 1,000 ML IV SCH ×3 (04:22→12:41)
[2017-01-28 07:44] LABS: BASOPHILS % (AUTO) 0.2 % (0-3); EOSINOPHILS % (AUTO) 0.2 % (0-5); MONOCYTES % (AUTO) 9.7 % (4-12); Mean Corpuscular Hemoglobin 31.5 pg (27.0-35.0); Mean Corpuscular Volume 96.2 fL (81-100); NEUTROPHILS % (AUTO) 76.7 % (40-74); Platelet Count 164 bil/L (150-400)
[2017-01-28] MEDS: Omega-3 Fatty Acids 1,000 mg Capsule PO SCH (09:34)
[2017-01-28] MEDS: Fluticasone 100 mCg Inhaler INHALATION SCH (09:35)
--- NOTE | 2017-01-28 11:28 | PCM.PNMED ---
Subjective Date of Service Jan 28, 2017 Subjective GASTROENTEROLOGY PROGRESS NOTE Overnight: Tolerated 2200mL GoLytely; patient states she could not finish Today: Continues to endorse abdominal pain, unchanged since admission. Denies nausea and vomiting this am. Reports stools as loose, but not completely clear. Denies any blood noted in stool. Able to ambulate well without assistance. Anxious to complete procedure and would like to go home. Exam Vital Signs Vital Sign - Last Date Time Temp Pulse Resp B/P Pulse Ox O2 Delivery O2 Flow Rate FiO2 01/28/17 06:14 37.1 62 16 120/60 94 Room Air Intake and Output 01/27/17 01/27/17 01/28/17 Cumulative From/Thru 15:00 23:00 07:00 01/25/17 16:47 - 01/28/17 05:51 Intake Total 2888 ml 1510 ml 936 ml 7544 ml Output Total 400 ml 1250 ml 2370 ml Balance 2488 ml 260 ml 936 ml 5174 ml Intake Oral 2000 ml 480 ml 2700 ml IV Total 888 ml 1030 ml 936 ml 4844 ml Output Urine Total 400 ml 1100 ml Urine/Stool Mix 1050 ml 1050 ml Emesis 200 ml 220 ml # Voids 3 # Bowel Movements 4 3 7 Exam General: Alert, Oriented X3, Cooperative, No acute distress; standing in room unassisted Head: Normal Eyes: EOMI, Scleral Anicteric Nose: Mucous Membr Moist/[place] Mouth: Mucous Membr Moist/[place] Chest & Lungs: Clear to auscultation Cardiovascular: Regular Rate/Rhythm, No Murmurs/Rubs/Gallops Abdomen: Tender diffusely with palpation, Non-distended, Soft MSK: Able to ambulate and maintain posture without assistance; 5/5 BLUE, BLLE Neurological: Grossly Neurologically Intact, Normal Speech without slur; facial expressions equal and symmetric Psych: Appropriate mood, affect, and responses to questioning; good insight and judgment Lab and Diagnostics Result Diagram: 01/28/17 0710 01/28/17 0710 Microbiology Laboratory Tests Test 01/25/17 18:21 Urine Color Bloody Urine Appearance Cloudy Urine pH 7.0 Urine Specific [place] 1.015 Urine Protein 30mg/dL Urine Glucose (UA) Negativemg/dL Urine Ketones Negativemg/dL Urine Occult Blood Large Urine Nitrite Negative Urine Bilirubin Negative Urine Urobilinogen Normalmg/dL Urine Leukocyte Esterase Trace Urine RBC Packed/hpf Urine WBC 0-5/hpf Urine Epithelial Cells Few/hpf Urine Crystals None seen Urine Bacteria Few/hpf Urine Hyaline Casts None/lpf Urine Granular Casts None seen Urine Waxy Casts None seen Urine Red Blood Cell Casts None seen Urine White Blood Cell Casts None seen Urine Mucus None seen Urine Trichomonas None seen Urine Yeast None Urinalysis Comment None Urine Culture Reflexed Indicated X-Rays, CTs and MRIs [facility] Diagnostic Imaging [place] [address] Patient Name: JESSENIA XIONG MR#: [id number] [place] [facility] Ordering Phys: Leo Das MD Date of Service: 01/25/172028 PROCEDURE: CT ABDOMEN AND PELVIS WITH CONTRAST ([id number]) INDICATIONS: Abd Pain TECHNIQUE: After the administration of oral and intravenous contrast, 5 mm thick sections acquired from the diaphragms to the symphysis. 5 mm thick coronal and sagittal reformats were performed. For radiation dose reduction, the following was used : automated exposure control, adjustment of mA and/or kV according to patient size. COMPARISON: [facility], CT, CT ABDOMEN PELVIS W CONTRAST, 2016, 9:50 AM. FINDINGS: Image quality: Excellent. ABDOMEN: Lung bases: Lung bases are clear. Heart size is normal. Solid organs: Liver and spleen are normal in size and enhancement. Diffuse fatty filtration liver is noted. Gallbladder is within normal limits. Biliary system is non-dilated. Pancreas enhances normally. No adrenal nodules. Kidneys are normal in size and enhancement, without hydronephrosis. Small left renal cyst is noted. Peritoneum and bowel: Stomach, small bowel, and colon loops are normal in caliber and wall thickness. No free fluid or air. The appendix is within normal limits. Nodes and vessels: No retroperitoneal or mesenteric adenopathy. Aorta and inferior vena cava are normal in caliber. Miscellaneous: No ventral hernias. PELVIS: Genitourinary: Bladder wall thickness is normal. 2.5 cm left ovarian cyst is noted. Uterus is prominent in size but particularly at the lower uterine segment. Miscellaneous: No inguinal hernias or adenopathy. Bones: No suspicious bony lesions. No vertebral body compression fractures. IMPRESSION: 1. Hepatic steatosis. 2. 2.5 cm left adnexal cyst. 3. Prominent uterus with possible mass in the lower uterine segment/cervix. Recommend pelvic ultrasound and gynecologic consultation. Dictated by: Amy Barnett MD, PhD on 01/26/2017 at 9:26 Approved by: mAy Barnett MD, PhD on 01/26/2017 at 9:33 Assessment & Plan GASTROENTEROLOGY CONSULTATION NOTE Ms. Jessenia Xiong is a pleasant 57 year old woman with no personal history of GI issues that presented to [facility] with increasing abdominal pain that has been present over the recent 2 months. GI was consulted to evaluate for an etiology of her symptoms. CT A/P w/con 01/25: hepatic steatosis, 2.5cm left adnexal cyst, prominent uterus with possible mass of lower segment/cervix Pelvic US 01/26: No free fluid of abd, left ovary simple cysts, incidental note of gallbladder polyps x2 1.5mm Assessments - Acute abdominal pain x2 months - Family history gastric cancer of first degree relatives Plan - EGD scheduled 01/26; completed. No evidence of disease or etiology of symptoms. Bx obtained for H. pylori - Colonoscopy scheduled 01/28 to evaluate for etiology of abd pain No source from GI perspective yet identified. Thank you for this consult. We will happily follow along with you. Total time: 30 minutes VTE Prophylaxis: SCDs VTE Mechanical Devices: Intermittant Pneumatic CD Resuscitation Status: CPR: Attempt Resuscitation Attending Statement pt seen and examined her colonscopy was normal except for one small polyp unsure of etiology for abdominal pain recommend miralax daily advance diet and can D/C home if tolerates diet she can follow up n GI clinic with Micha OROPEZA. will sign off. Jhoana Thomas DO Jan 28, 2017 11:28 Linda Plaza MD Jan 28, 2017 23:17
[2017-01-28] MEDS ORDERED: fentaNYL-PF 50 mCg/mL 2 mL Inj ONE (12:18)
[2017-01-28] MEDS ORDERED: fentaNYL-PF 50 mCg/mL 2 mL Inj IVPUSH PRN (12:20)
--- NOTE | 2017-01-28 13:08 | PATH ---
SURGICAL PATHOLOGY Attending Physician:Chadwick Woods CASE STATUS: Signed Out PATIENT NAME: RUSTAM REYES PID: [id number] : 1960 DATE COLLECTED:01/26/2017 00:00 SPECIMEN: Gastric, Biopsy CLINICAL HISTORY: 1). GASTRIC BIOPSY FINAL DIAGNOSIS: 1.GASTRIC BIOPSY: MILD SUPERFICIAL CHRONIC GASTRITIS INVOLVING FUNDIC MUCOSA. Negative for evidence of Helicobacter. Negative for intestinal metaplasia. Negative for dysplasia and malignancy. ICD10 code K29.70 GROSS DESCRIPTION: The specimen is received in one formalin filled container labeled with the patient's name, sublabeled "gastric" and consists of 2 portions of tissue which aggregate to 0.3 x 0.3 x 0.2 CM. The specimen is entirely submitted in one cassette. 01/27/2017 [facility] MICRO DESCRIPTION: See diagnosis. ICD-9 CODES: CPT CODES: 1: 32708 Electronically Signed Out Matt Steiner MD [facility] Pathology [facility] [address], [place] [address] Technical component performed at [facility], [facility] [address], [place], [address]
--- NOTE | 2017-01-28 13:29 | ENDO ---
[address] [address] ENDOSCOPY PROCEDURE PATIENT: RUSTAM REYES : 1960 MR#: [id number] ADMIT: 01/25/2017 JOB ID: [id number] PROCEDURE: Colonoscopy. INDICATION: Abdominal pain. ANESTHESIA: Patient's ASA classification is one. Mallampati score is one. MEDICATIONS: Versed 3 mg and fentanyl 100 mcg. INSTRUMENT USED: [id number]. PREPARATION QUALITY: Fair. PROCEDURE DETAILS: After informed consent was obtained, the patient was brought into the GI suite, where she was placed on oxygen via nasal cannula and monitored with continuous pulse oximeter, telemetry, and blood pressure monitoring. A time-out was performed, then she was placed in the left lateral decubitus position and medications were administered for sedation. Digital rectal exam was performed, which was unremarkable. The colonoscope was then inserted into the rectum and advanced under direct visualization to the terminal ileum, which was identified by the presence of the ileocecal valve and appendiceal orifice. Once the terminal ileum was reached, the colonoscope was withdrawn back to the rectum as the mucosa and lumen were examined. In the rectum, retroflexion was performed. Following retroflexion, the remaining air in the rectum was suctioned and the procedure was completed. FINDINGS: 1. In the transverse colon, there was an approximately 3-4 mm flat polyp that was removed with cold biopsy forceps. 2. The remainder of the colon exam was otherwise unremarkable from rectum to terminal ileum. IMPRESSION: 1. Transverse colon polyp. 2. No findings to explain the patient's abdominal pain. RECOMMENDATIONS: 1. MiraLAX daily. 2. Start clear liquid diet and advance as tolerated. 3. Follow up in GI Clinic. COMPLICATIONS: None. ESTIMATED BLOOD LOSS: Less than 5 mL.
--- NOTE | 2017-01-28 16:07 | PCM.DIMED ---
Discharge Instructions Date of Service Jan 28, 2017 Dates of Hospitalization Jan 25, 2017 at 20:00 Discharge Diagnosis Discharge Diagnosis Abd pain due to constipation, allergies, asthma, Medication Instructions Please take miralax OTC 1 packet daily Diet Other (diet high in fiber) Activity No restrictions Call your provider Fever or Chills, Shortness of breath, Bleeding, Chest pain, Vomitting, Excessive diarrhea, Weakness (unilateral) Patient Instructions Start clear liquid diet and advance as tolerated Follow-up with PCP in: 2 weeks Follow-up in: 2 weeks Additional Information follow up with GI in 2 weeks Nella Whitesdie DO Jan 28, 2017 16:06
--- NOTE | 2017-01-28 16:09 | PCM.DC.MED ---
Discharge Summary Date of Service Jan 28, 2017 Dates of Hospitalization Date of Hospital Admission Jan 25, 2017 at 20:00 Date of Discharge: Jan 28, 2017 Providers: Admitting Physician: Erika Sun DO Primary Care Physician: Mukul Mora MD Attending Physician: Erika Sun DO Diagnosis at Time of Discharge Diagnosis at Time of Discharge Abd pain due to constipation, allergies, asthma, Consultations Gastroenterology, [employer] Procedures XRay, CTs & MRIs [facility] [place] [address] Patient Name: JESSENIA XIONG MR#: [id number] Location: [facility] [place] Ordering Phys: Leo Das MD Date of Service: 01/25/172028 PROCEDURE: CT ABDOMEN AND PELVIS WITH CONTRAST ([id number]) INDICATIONS: Abd Pain TECHNIQUE: After the administration of oral and intravenous contrast, 5 mm thick sections acquired from the diaphragms to the symphysis. 5 mm thick coronal and sagittal reformats were performed. For radiation dose reduction, the following was used : automated exposure control, adjustment of mA and/or kV according to patient size. COMPARISON: [facility], CT, CT ABDOMEN PELVIS W CONTRAST, 2016, 9:50 AM. FINDINGS: Image quality: Excellent. ABDOMEN: Lung bases: Lung bases are clear. Heart size is normal. Solid organs: Liver and spleen are normal in size and enhancement. Diffuse fatty filtration liver is noted. Gallbladder is within normal limits. Biliary system is non-dilated. Pancreas enhances normally. No adrenal nodules. Kidneys are normal in size and enhancement, without hydronephrosis. Small left renal cyst is noted. Peritoneum and bowel: Stomach, small bowel, and colon loops are normal in caliber and wall thickness. No free fluid or air. The appendix is within normal limits. Nodes and vessels: No retroperitoneal or mesenteric adenopathy. Aorta and inferior vena cava are normal in caliber. Miscellaneous: No ventral hernias. PELVIS: Genitourinary: Bladder wall thickness is normal. 2.5 cm left ovarian cyst is noted. Uterus is prominent in size but particularly at the lower uterine segment. Miscellaneous: No inguinal hernias or adenopathy. Bones: No suspicious bony lesions. No vertebral body compression fractures. IMPRESSION: 1. Hepatic steatosis. 2. 2.5 cm left adnexal cyst. 3. Prominent uterus with possible mass in the lower uterine segment/cervix. Recommend pelvic ultrasound and gynecologic consultation. Dictated by: Amy Barnett MD, PhD on 01/26/2017 at 9:26 Approved by: Amy Barnett MD, PhD on 01/26/2017 at 9:33 Brief History Ms. Jessenia Xiong is a pleasant 57 year old woman with no personal history of GI issues that presented to [facility] with increasing abdominal pain that has been present over the recent 2 months. GI was consulted to evaluate for an etiology of her symptoms. She describes the pain as a constant stabbing pain, located within epigastric region, and also of suprapubic area similar to child- associated pains. She has never received EGD or colonoscopy prior to this hospitalization. She has associated nausea, mild dizziness with pain episodes, and unintentional weight loss of apporx 15 lbs since onset of symptoms. Denies fever, chills. GI was consulted to evaluate for etiology of symptoms. Hospital Course Ms. Jessenia Xiong is a pleasant 57 year old woman with no personal history of GI issues that presented to [facility] with increasing abdominal pain that has been present over the recent 2 months. GI was consulted to evaluate for an etiology of her symptoms. CT A/P w/con 01/25: hepatic steatosis, 2.5cm left adnexal cyst, prominent uterus with possible mass of lower segment/cervix Pelvic US 01/26: No free fluid of abd, left ovary simple cysts, incidental note of gallbladder polyps x2 1.5mm Assessments - Acute abdominal pain x2 months: Patient was given pain control and nausea control. Patient was seen by GI and EGD as well as colonoscopy were performed during this stay with no acute findings. Her pain was thought to be due to constipation and MiraLAX is recommended. [employer]ER also was consulted based on her presentation and the pelvic ultrasound that was performed was read by the CLUTCH ASSEMBLER with no significant findings. [employer]ER thus signed off. On the day of discharge patient was very comfortable and ambulating in the hallways. No other source from GI perspective was identified -- Allergies: Home medications were maintained -- GERD: Her medications were maintained Exam Vital Signs (Last) Date Time Temp Pulse Resp B/P Pulse Ox O2 Delivery O2 Flow Rate FiO2 01/28/17 14:20 36.8 85 16 122/75 95 Room Air Test 01/25/17 18:21 01/25/17 19:35 01/28/17 07:10 Urine Color Bloody (YELLOW) Urine Appearance Cloudy (CLEAR,HAZY) Urine pH 7.0 (5.0-8.0) Urine Specific [place] 1.015 (1.003-1.035) Urine Protein 30mg/dL (NEG,TRACE) Urine Glucose (UA) Negativemg/dL (NEGATIVE) Urine Ketones Negativemg/dL (NEGATIVE) Urine Occult Blood Large (NEGATIVE) Urine Nitrite Negative (NEGATIVE) Urine Bilirubin Negative (NEGATIVE) Urine Urobilinogen Normalmg/dL (NORMAL) Urine Leukocyte Esterase Trace (NEGATIVE) Urine RBC Packed/hpf (0-2) Urine WBC 0-5/hpf (0-5) Urine Epithelial Cells Few/hpf (NONE-MOD) Urine Crystals None seen (NONE SEEN) Urine Bacteria Few/hpf (NONE-FEW) Urine Hyaline Casts None/lpf (NONE) Urine Granular Casts None seen (NONE SEEN) Urine Waxy Casts None seen (NONE SEEN) Urine Red Blood Cell Casts None seen (NONE SEEN) Urine White Blood Cell Casts None seen (NONE SEEN) Urine Mucus None seen (None Seen) Urine Trichomonas None seen (NONE SEEN) Urine Yeast None (NONE SEEN) Urinalysis Comment None Urine Culture Reflexed Indicated Magnesium Level 2.1mg/dL (1.6-2.6) Lipase 47U/L (13-60) Hold Anaya Top Tube Received (Received) White Blood Count 5.2th/mm3 (3.8-10.1) Red Blood Count 3.94mil/mm3 (3.90-5.20) Hemoglobin 12.4g/dL (12.0-15.6) Hematocrit 37.9% (35.0-46.0) Mean Corpuscular Volume 96.2fL (81-100) Mean Corpuscular Hemoglobin 31.5pg (27.0-35.0) Mean Corpuscular Hemoglobin Concent 32.7% (32.0-37.0) Red Cell Distribution Width 13.3% (12.3-15.4) Platelet Count 164bil/L (150-400) Neutrophils (%) (Auto) 76.7% (40-74) Lymphocytes (%) (Auto) 13.0% (14-46) Monocytes (%) (Auto) 9.7% (4-12) Eosinophils (%) (Auto) 0.2% (0-5) Basophils (%) (Auto) 0.2% (0-3) Sodium Level 140mEq/L (134-144) Potassium Level 3.2mEq/L (3.5-5.2) Chloride Level 106mEq/L (97-108) Carbon Dioxide Level 21mmol/L (18-29) Blood Urea Nitrogen 6mg/dL (6-24) Creatinine 0.48mg/dL (0.57-1.00) Estimat Glomerular Filtration Rate 192mL/min (>59) Glucose Level 105mg/dL (60-99) Calcium Level 7.9mg/dL (8.5-10.1) Total Bilirubin 0.7mg/dL (0.0-1.2) Aspartate Amino Transf (AST/SGOT) 10U/L (0-50) Alanine Aminotransferase (ALT/SGPT) 9U/L (0-32) Alkaline Phosphatase 52U/L (25-150) Total Protein 5.3g/dL (6.4-8.4) Albumin 3.4g/dL (3.4-5.0) Microbiology Results Laboratory Tests Test 01/25/17 18:21 Urine Color Bloody Urine Appearance Cloudy Urine pH 7.0 Urine Specific [place] 1.015 Urine Protein 30mg/dL Urine Glucose (UA) Negativemg/dL Urine Ketones Negativemg/dL Urine Occult Blood Large Urine Nitrite Negative Urine Bilirubin Negative Urine Urobilinogen Normalmg/dL Urine Leukocyte Esterase Trace Urine RBC Packed/hpf Urine WBC 0-5/hpf Urine Epithelial Cells Few/hpf Urine Crystals None seen Urine Bacteria Few/hpf Urine Hyaline Casts None/lpf Urine Granular Casts None seen Urine Waxy Casts None seen Urine Red Blood Cell Casts None seen Urine White Blood Cell Casts None seen Urine Mucus None seen Urine Trichomonas None seen Urine Yeast None Urinalysis Comment None Urine Culture Reflexed Indicated Discharge Medications Discharge Medications Beclomethasone Dipropionate (Qvar) 8.7 Gm Aer.w.adap 3 PUFF INHALATION BID ( Reported) 80 MCG INHALER Cetirizine HCl (Zyrtec) 10 Mg Capsule 10 MG PO HS (Reported) Ferrous Sulfate (Ferrous Sulfate) 325 Mg Tablet 325 MG PO DAILY (Reported) Montelukast (Montelukast) 10 Mg Tablet 10 MG PO HS (Reported) [place]-3/Dha/Epa/Fish Oil (Fish Oil 1,000 mg Softgel) 1 Each Capsule 1 EACH PO BID (Reported) Potassium Gluconate (Potassium Gluconate) 500 Mg Tablet 500 MG PO DAILY ( Reported) As needed Albuterol HFA (Proair HFA) 8.5 Gm Hfa.aer.ad 2 PUFFS INHALATION Q4H PRN PRN For Shortness of Breath (Reported) Epinephrine (Epipen 2-Delbert) 0.3 Mg/0.3 Ml Auto.injct 0.3 MG IJ DAILY PRN PRN For Anaphyllaxis (Reported) diphenhydrAMINE HCl (Benadryl) 25 Mg Capsule 25-50 MG PO Q4H PRN PRN ALLERGIC REACTION (Reported) Additional med instructions Please take miralax OTC 1 packet daily Followup Plan Discharge Diet: Other (diet high in fiber) Discharge Activity: No restrictions Patient Instructions Start clear liquid diet and advance as tolerated Follow-up with PCP in: 2 weeks Follow-up in: 2 weeks Nella Whiteside DO Jan 28, 2017 16:09
[2017-01-29] MEDS ORDERED: Polyethylene Glycol (PEG) 17 Gm Powder PO SCH (08:30)
--- NOTE | 2017-01-29 14:30 | PATH ---
SURGICAL PATHOLOGY Attending Physician:Chadwick Woods CASE STATUS: Signed Out PATIENT NAME: RUSTAM REYES PID: [id number] : 1960 DATE COLLECTED:01/28/2017 21:03 SPECIMEN: Colon, Biopsy CLINICAL HISTORY: ABDOMINAL PAIN 1). 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 ICD10 CODE D12.2 GROSS DESCRIPTION: The specimen is received in one formalin filled container labeled with the patient's name, sublabeled "transverse polyp" and consists of 2 portions of tissue which aggregate to 0.2 x 0.2 x 0.2 CM. The specimen is entirely submitted in one cassette. 01/28/2017 DAC MICRO DESCRIPTION: See diagnosis. ICD-9 CODES: CPT CODES: 1: 77892 Electronically Signed Out Matt Steiner MD [facility] [address], [place] [address] Technical component performed at [facility], [facility] [address], [place], [address]
== END 2017-01-28 16:30 | disposition home or self-care (01) ==
LOC: SED 16:41 → MOC 20:00
PROVIDERS: ADMIT Internal Medicine; ATTEND Internal Medicine
DX: K59.00 Constipation, unspecified (principal); D12.3 Benign neoplasm of transverse colon; K29.50 Unspecified chronic gastritis without bleeding; R10.11 Right upper quadrant pain; R63.4 Abnormal weight loss; E86.0 Dehydration; R31.9 Hematuria, unspecified; J45.909 Unspecified asthma, uncomplicated; N83.202 Unspecified ovarian cyst, left side; Z68.20 Body mass index [BMI] 20.0-20.9, adult; Z80.0 Family history of malignant neoplasm of digestive organs; Z88.8 Allergy status to other drugs, medicaments and biological substances; Z91.018 Allergy to other foods
CPT/HCPCS: 36415; 43239; 45380; 74177; 76830; 76856; 80053; 81000; 83690; 83735; 85025; 87086; 87088; 96361; 96374; 96375; 96376; 99285; G0378; G0500; J1170; J2250; J2405; J2765; J3010; J7030; Q9967